=== PATIENT | male | born 1950 | race Caucasian/White ===

== ENCOUNTER 2016-07-24 11:06 | Inpatient (IN) ==
[2016-07-24] MEDS ORDERED: ASPIRIN PO STA (11:38)
[2016-07-24] MEDS ORDERED: APRESOLINE IV ONE (11:55)
[2016-07-24 12:02] LABS: MANUAL DIFF NEEDED? NO
[2016-07-24 12:14] LABS: INR 0.94; PROTIME 9.8 Seconds (9.2-11.7); PTT 30.4 Seconds (22.0-36.0)
[2016-07-24 12:17] LABS: BASO% 0.1 % (0.0-0.8); EOS# 0.25 X1000 (0.0-0.7); EOS% 2.8 % (0.0-10.0); HEMATOCRIT 26.1 % (42.0-52.0); HEMOGLOBIN 7.9 g/dL (14.0-18.0); IMM GRAN# 0.04 X1000 (0.0-0.04); IMM GRAN% 0.4 % (0.0-0.5); LYMPH# 1.04 X1000 (1.2-3.4); LYMPH% 11.7 % (20.5-51.1); MCH 23.2 PG (27-31); MCHC 30.3 g/dL (33-37); MCV 76.5 FL (81-99); MONO# 0.58 X1000 (0.11-0.59); MONO% 6.5 % (1.7-9.3); MPV 9.1 FL (7.4-10.4); NEUT% 78.5 % (42.2-75.2); PLT 203 X1000 (130-400); RBC 3.41 XMIL (4.7-6.1)
[2016-07-24 12:38] LABS: ALBUMIN 3.1 g/dL (3.5-5.0); CALCIUM 8.5 mg/dL (8.8-10.2); MAGNESIUM 1.6 mg/dL (1.5-2.7); POTASSIUM 4.1 mmol/L (3.5-5.1); TOTAL BILIRUBIN 0.24 mg/dL (0.20-1.00); TOTAL PROTEIN 6.7 g/dL (6.3-8.3)
[2016-07-24] MEDS ORDERED: NS 1,000 ML IV ONE (12:40)
--- NOTE | 2016-07-24 12:41 | Diag Imaging Result Document ---
PROCEDURE NAME: CHEST-2 VIEWS - 07/24/2016 FRONTAL AND LATERAL CHEST, TWO VIEWS: COMPARISON: 09/14/2015. FINDINGS: The lungs are well expanded. The heart is not enlarged. The vessels are not distended. No pneumonia. No consolidation. No free air beneath the diaphragm. IMPRESSION: No acute abnormality.
[2016-07-24] MEDS ORDERED: LASIX IV ONE (14:04)
--- NOTE | 2016-07-24 14:34 | Diag Imaging Result Document ---
PROCEDURE NAME: CTA THORAX/ABDOMEN/PELVIS - 07/24/2016 CT CHEST, ABDOMEN, AND PELVIS WITH INTRAVENOUS CONTRAST: FINDINGS: Chest with contrast. No thoracic aortic aneurysm or dissection. The heart is not enlarged. No pleural effusions. There are small mediastinal lymph nodes with several small calcified right hilar and subcarinal lymph nodes. No large central pulmonary emboli. There are small nonspecific nodular infiltrates in the upper mid lungs. No consolidation. No bronchiectasis. There is a calcified granuloma in the right lower lobe. IMPRESSION: 1. No thoracic aortic aneurysm or dissection. 2. There is evidence of a prior granulomatous infection. 3. Small scattered nodular infiltrates. FINDINGS: Abdomen and pelvis with intravenous contrast. The gallbladder has been removed. I believe there is fatty infiltration of the liver. Normal spleen, pancreas, and adrenal glands. No renal masses. No hydronephrosis. No abdominal aortic aneurysm or dissection. Moderate atherosclerosis. No bowel obstruction. No inflammation about the cecum. There are several scattered diverticula. No abscess. No free air. The urinary bladder is moderately distended and appears normal. The prostate is not enlarged. IMPRESSION: 1. Atherosclerosis, but no abdominal aortic aneurysm or dissection. 2. Cholecystectomy. 3. Fatty infiltration of the liver. 4. The L4 vertebra is subluxed on the L5 vertebra 11 mm with bilateral pars defects to the L4 vertebra and at least moderate spinal stenosis. A preliminary report was given at 1:47 p.m. MTDD
--- NOTE | 2016-07-24 14:35 | PROVIDER DOCUMENTATION ---
This chart was entered by Amari Monge Scribe, acting as scribe for Maile Rosenberg Jr, MD. HPI-Chest Pain - General Chief Complaint: Chest Pain Stated Complaint: CP Time Seen by Provider: 07/24/16 11:26 Source: patient Allergies/Adverse Reactions: Patient Allergies Allergy/AdvReac Type Severity Reaction Status Date / Time shellfish derived AdvReac NAUSEA/VOMI Verified 07/24/16 11:36 TING Home Medications: Home Medication List Medication Instructions Recorded Confirmed Last Taken Type Atenolol [Tenormin] 50 mg PO BID 06/30/12 07/24/16 07/24/16 History Insulin Glargine [Lantus] 90 unit SUBQ QHS 06/30/12 07/24/16 07/23/16 History Insulin Human Regular [Humulin R] 28 units SQ BID 06/30/12 07/24/16 07/24/16 History Metformin [Glucophage] 1,000 mg PO QPM 06/30/12 07/24/16 07/23/16 History Metformin [Glucophage] 500 mg PO QAM 06/30/12 07/24/16 07/24/16 History Niacin [Niaspan] 500 mg PO DAILY 06/30/12 07/24/16 07/24/16 History EZETIMIBE/SIMVAstatin [Vytorin 1 each PO QHS 07/16/12 07/24/16 07/23/16 History 10/20 mg] Losartan/Hydrochlorothiazide 1 each PO DAILY 07/16/12 07/24/16 07/24/16 History [Losartan-Hctz 50-12.5 mg Tab] Allopurinol [Zyloprim] 300 mg PO BID 09/14/15 07/24/16 07/24/16 History Omeprazole [Prilosec] 40 mg PO DAILY 09/14/15 07/24/16 07/24/16 History Oxycodone HCl/Acetaminophen 1 each PO TID PRN PRN 07/24/16 07/24/16 07/24/16 History [Percocet 10-325 mg Tablet] - History of Present Illness-CP Nature of Presenting Problem: patient is a 66 y/o M that presents to the ER left anterior chest pain that began abruptly today after he bent over to close cabinet. Patient has shortness of breath with pain, dizziness, and weakness. His pain is a dull pain. He denies radiation of pain. Patient was seen last week by pcp for chest pain but at that time is was more in the epigastric area. He has history of AAA in which he is being monitor for. Location: reports: other (left anterior) Chest Pain Radiation: reports: no radiation Quality of Pain: reports: dull Severity in ED: moderate Onset/Duration: abrupt, this morning Timing: still present, constant Context/Activities at Onset: reports: light activity Modifying Factors: worse with: breathing Associated Symptoms: reports: dizziness, shortness of breath, weakness. denies : abdominal pain, back pain, diaphoresis, fever/chills, nausea, vomiting Nitro Today/Relief: no nitro taken today Aspirin Treatment Today: 325 mg x 1, provided by ED Prior Chest Pain/Cardiac Workup: reports: other (AAA) Similar Symptoms Previously?: Yes Recently Seen Here or By Another Healthcare Provider: Yes Review of Systems - Adult - REVIEW OF SYSTEMS - ADULT Constitutional: denies: chills, fever Eyes: reports: no symptoms reported Ears, Nose, Mouth & Throat: denies: ear pain, sinus problem, throat pain, throat swelling Cardiovascular: reports: chest pain, edema. denies: orthopnea, palpitations, syncope Respiratory: reports: shortness of breath. denies: cough, wheezing Gastrointestinal: denies: abdominal pain, diarrhea, nausea, vomiting Genitourinary: reports: no symptoms reported Musculoskeletal: reports: muscle weakness. denies: back pain, joint pain, joint swelling, neck pain Integumentary: reports: no symptoms reported Neurological: reports: dizziness/vertigo. denies: headache/migraines, syncope Psychiatric: reports: no symptoms reported Endocrine: reports: no symptoms reported Hematologic/Lymphatic: reports: no symptoms reported Allergic/Immunologic: reports: no symptoms reported All Other Systems: Reviewed and Negative Past History - Adult - PAST MEDICAL HISTORY-ADULT Review of Records: reports: Old Records Reviewed, Nursing Assessment Review, Medications Reviewed Cardiovascular: reports: HTN Respiratory: reports: COPD, other (emphysema) Gastrointestinal: reports: GERD Musculoskeletal: reports: arthritis (gout) Endocrine/Immune: reports: Diabetes Other Conditions: reports: other cancer (skin ) - PRIOR SURGERIES/PROCEDURES Surgical/Procedure History: reports: cholecystectomy, orthopedic (extremity), other (cataract) - IMMUNIZATION STATUS Childhood Immunizations: See Nurse Assessment Flu Vaccine: See Nurse Assessment - FAMILY HISTORY Family History: reviewed, not pertinent - SOCIAL HISTORY Smoking: quit greater than 1 year, cigarettes Living Situation: family Physical Exam-General - PHYSICAL EXAM-ADULT Initial Vital Signs Reviewed: Yes - CONSTITUTIONAL General Appearance: alert, no apparent distress - EYES Eyes: PERRL/EOMI, pink conjunctivae - HEAD, EARS, NOSE, MOUTH & THROAT HENMT: normocephalic/atraumatic, moist mucous membranes, normal ENT inspection - NECK Neck: non-tender, full range of motion, normal inspection - RESPIRATORY Respiratory: chest non-tender, lungs clear, normal breath sounds, no respiratory distress, no accessory muscle use - CARDIOVASCULAR Cardiovascular: regular rate, rhythm, no gallop, no JVD, no murmur - GASTROINTESTINAL (ABDOMEN) Abdominal Exam: normal bowel sounds, non tender, soft, no organomegaly, no pulsatile mass - MUSCULOSKELETAL Back Exam: no CVA tenderness, no vertebral tenderness Extremity: normal range of motion, no calf tenderness, normal capillary refill, pedal edema (1 plus pitting bilateral lower extremities) - SKIN Integumentary: normal color, warm/dry - NEUROLOGIC Neurologic: grossly normal, no motor/sensory deficits - PSYCHIATRIC Psych/Mental Status: normal mood/affect, normal thought content, normal thought process, oriented x 3 Progress - PLAN OF CARE/RESULTS Progress/Plan/Lab Results: Vital Signs - 8 hr 07/24/16 11:16 07/24/16 11:40 07/24/16 12:39 Temperature 98.1 F Pulse Rate 73 70 71 Respiratory Rate 20 19 17 Blood Pressure 206/78 214/92 185/76 O2 Sat by Pulse Oximetry 100 98 07/24/16 12:53 Temperature Pulse Rate 72 Respiratory Rate 19 Blood Pressure 185/76 O2 Sat by Pulse Oximetry 99 Laboratory Results - last 24 hr 07/24/16 07/24/16 07/24/16 11:55 11:55 11:55 WBC 8.92 RBC 3.41 L Hgb 7.9 L Hct 26.1 L MCV 76.5 L MCH 23.2 L MCHC 30.3 L RDW Std Deviation 15.4 H Plt Count 203 MPV 9.1 Immature Gran % (Auto) 0.4 Neut % (Auto) 78.5 H Lymph % (Auto) 11.7 L Phelps % (Auto) 6.5 Eos % (Auto) 2.8 Baso % (Auto) 0.1 Immature Gran # (Auto) 0.04 Neut # (Auto) 7.00 H Lymph # (Auto) 1.04 L Phelps # (Auto) 0.58 Eos # (Auto) 0.25 Baso # (Auto) 0.01 PT INR PTT (Actin FS) Sodium 133 L Potassium 4.1 Chloride 96 L Carbon Dioxide 21 L Anion Gap 16 BUN 21 Creatinine 1.6 H Estimated GFR/1.73 m2 44 BUN/Creatinine Ratio 13 Glucose 227 H Calculated Osmolality 276 Calcium 8.5 L Magnesium 1.6 Total Bilirubin 0.24 AST 18 ALT 10 Alkaline Phosphatase 84 Creatine Kinase 50 Troponin T Ogr-E-Zhivrkutbka Pept 1336 H Total Protein 6.7 Albumin 3.1 L Globulin 3.6 Albumin/Globulin Ratio 0.9 07/24/16 07/24/16 11:55 11:55 WBC RBC Hgb Hct MCV MCH MCHC RDW Std Deviation Plt Count MPV Immature Gran % (Auto) Neut % (Auto) Lymph % (Auto) Phelps % (Auto) Eos % (Auto) Baso % (Auto) Immature Gran # (Auto) Neut # (Auto) Lymph # (Auto) Phelps # (Auto) Eos # (Auto) Baso # (Auto) PT 9.8 INR 0.94 PTT (Actin FS) 30.4 Sodium Potassium Chloride Carbon Dioxide Anion Gap BUN Creatinine Estimated GFR/1.73 m2 BUN/Creatinine Ratio Glucose Calculated Osmolality Calcium Magnesium Total Bilirubin AST ALT Alkaline Phosphatase Creatine Kinase Troponin T 0.047 Siv-H-Iuzoyazeaac Pept Total Protein Albumin Globulin Albumin/Globulin Ratio Orders Category Date Time Status Cardiac Monitoring DIRECTED Care 07/24/16 11:38 Active Oxygen Therapy- ED Nursing DIRECTED Care 07/24/16 11:38 Active Saline Loc NOW Care 07/24/16 11:38 Active CHEST-2 VIEWS [RAD] Stat Exams 07/24/16 11:38 Completed CTA THORAX/ABDOMEN/PELVIS [CT] Stat Exams 07/24/16 13:05 Taken CBC WITH ELECTRONIC DIFF [HEME] Stat Lab 07/24/16 11:55 Completed CK PROFILE [SP CHEM] Stat Lab 07/24/16 11:55 Completed COMPREHENSIVE METABOLIC PANEL [CHEM] Stat Lab 07/24/16 11:55 Completed MAGNESIUM [CHEM] Stat Lab 07/24/16 11:55 Completed PRO B-NATRIURETIC PEPTIDE Stat Lab 07/24/16 11:55 Completed PROTIME WITH INR [COAG] Stat Lab 07/24/16 11:55 Completed PTT [COAG] Stat Lab 07/24/16 11:55 Completed TROPONIN T Stat Lab 07/24/16 11:55 Completed 0.9% Sodium Chloride Inj [Ns] 1,000 ml Med 07/24/16 12:40 Discontinued IV 999 mls/hr Aspirin Med 07/24/16 11:38 Discontinued 325 mg PO STAT STA Hydralazine [Apresoline] Med 07/24/16 11:55 Discontinued 10 mg IV NOW ONE EKG [EKG] Stat Ther 07/24/16 11:38 Ordered plan of care-cardiac work up including CTA 1303- spoke with radiology regarding not using contrast on patient due to shellfish allergy. Radiologist reported that there isn't a relation to shellfish allergy and ivp dye. recommends contrasted study to look for leaking Aneurysm Result Diagrams: 07/24/16 11:55 07/24/16 11:55 - EKG 1 Time of EKG reading by physician:: 11:07 EKG Read and Signed by:: Maile Rosenberg Jr EKG Interpretation (*Must complete 3 of following elements*): Abnormal Rate: 74 Rhythm: sinus rhythm w/ 1st degree av block [place]: normal QRS: normal ND Interval: normal ST Wave: non-specific ST changes - XRAY 1 XRAY Study: Chest Impression: Normal XRAY Interpretation: nad - CT/MRI 1 CT Study: Angiogram Impression: Abnormal (No thoracic or abdominal aneurysm. no obstruction. Small nodular inflitrates. cholecystectomy.) - CONSULTS/PCP/HOSPITALIST Notification #1 *Consult/PCP/Hospitalist*: Dr. Mooney Time Discussed: 13:55 Consult Disposition: Admit (inpatient. give lasix.) Departure - Departure Time of Disposition Decision: 14:03 DIAGNOSIS: Chest pain in adult, Hypertension associated with diabetes CHF exacerbation Qualifiers: Congestive heart failure type: unspecified congestive heart failure type Qualified Code(s): I50.9 - Heart failure, unspecified Disposition: ADMITTED INPATIENT 09 Certified Medical Emergency: Emergent Condition: Good Referrals and Follow-Ups: Ozzy Mooney MD [Primary Care Provider] - This chart was documented by the indicated scribe, (Amari Monge, Alexisibeugene) and accurately reflects the services I performed and decisions made by me, Maile Rosenberg Jr, MD, as attested by the provider's signature.
[2016-07-24] MEDS: MORPHINE IV PRN ×2 (17:40→21:03)
[2016-07-24] MEDS: LOVENOX SUBQ SCH (17:44)
--- NOTE | 2016-07-24 18:00 | HISTORY AND PHYSICAL ---
HISTORY OF PRESENT ILLNESS: Mr. Martinez is a 66-year-old, white gentleman, comes to the emergency room with chest pain. He had some swelling of the legs and has some shortness of breath. This morning he was trying to open the drawer of his filing cabinet and he had some chest pain, which was in the retrosternal area as well as both precordial areas on both sides. He was somewhat short of breath after that and he comes to the emergency room. PAST MEDICAL HISTORY: He has a known case of hypertension, insulin-dependent diabetes, mild coronary artery disease. He has severe degenerative disk disease in the lumbar spine. He has diabetic neuropathy, peripheral arterial disease and he was told that he had aneurysms in the past. past SURGICAL HISTORY: Mr. Martinez had a history of cholecystectomy and knee surgery. ALLERGIES: He has no he is allergic to shellfish. SOCIAL HISTORY: He used to be a smoker, however, he does not smoke any longer. He does not drink. MEDICATIONS: Allopurinol 200 mg b.i.d., atenolol 50 mg b.i.d., Vytorin 1 at bedtime, 90 units of Lantus insulin, losartan daily, niacin 500 mg daily, metformin 500 mg in the morning and 1000 mg in the evening, He also takes oxycodone 10 t.i.d. p.r.n. DETAILS OF PERSONAL, PAST AND FAMILY HISTORY: Noncontributory. REVIEW OF SYSTEMS: Other than chest pain and shortness of breath and generalized weakness, it is noncontributory. He is anemic. During last admission, we had consulted Dr. Ornelas who wanted to see him after he was discharged, but patient did not go and see him. PHYSICAL EXAMINATION: VITAL SIGNS: Reveal temperature normal, pulse 72 per minute, respiratory rate 16 per minute. Blood pressure 174/73. HEENT: Head normocephalic. Pupils PERRLA. Fundus examination not done. NECK: Supple. JVP normal. ENT examination unremarkable. There is no evidence of lymphadenopathy, thyroid enlargement, pedal edema, calf tenderness, anemia, cyanosis or clubbing. Pedal pulses well felt. BREASTS: Exam normal. CHEST: Normal inspection. LUNGS: Clear on auscultation with occasional basal rales. PMI in the 6th intercostal space outside the midclavicular line. HEART: Sounds normal. No murmur, gallop or rub noted. ABDOMEN: Nondistended. Hernial orifices normal. No guarding, rigidity, free fluid, masses, or organomegaly. Bowel sounds normal. RECTAL: Deferred. AUDIO VISUAL PRODUCTION SPECIALIST: Higher functions normal. Cranial nerves normal. Motor and sensory system examination unremarkable except for subjective sensation of tingling and numbness in the legs. Deep tendon reflexes sluggish in the lower extremities. Plantars downgoing. Skull and spine examination reveals painful movements of the lumbosacral spine. SLR positive. No cerebellar signs or signs of meningeal irritation. LOCOMOTOR: Unremarkable. SKIN: Unremarkable. IMPRESSION: Chest pain. Possible unstable angina. Patient is in mild congestive heart failure. Troponin is negative and proBNP is somewhat elevated. We will get an echocardiogram in the morning and also put him on sliding scale. He had a computed tomography angiography done which was negative for pulmonary embolism as well as aneurysms of the abdominal and thoracic aorta. cc: Ozzy Mooney MD
[2016-07-24] MEDS ORDERED: GLUCOPHAGE PO SCH (21:00)
[2016-07-24] MEDS: ZYLOPRIM PO SCH (21:03)
[2016-07-24] MEDS: TENORMIN PO SCH (21:03)
[2016-07-24] MEDS: VYTORIN 10/20 MG PO SCH (21:03)
[2016-07-24] MEDS ORDERED: INSULIN PEN NEEDLES ONE (21:09)
[2016-07-24] MEDS: LANTUS SUBQ SCH (21:13)
[2016-07-24] MEDS: HUMULIN R SUBQ SCH (22:46)
[2016-07-24] MEDS: PERCOCET-10 PO PRN (23:05)
[2016-07-24] MEDS: ZOFRAN IV PRN (23:05)
[2016-07-25] MEDS: PERCOCET-10 PO PRN ×4 (04:24→22:46)
[2016-07-25] MEDS: MORPHINE IV PRN (05:29)
[2016-07-25] MEDS: ZOFRAN IV PRN (05:30)
--- NOTE | 2016-07-25 05:38 | EKG Report ---
Test Performed on : 07/24/2016 11:07:18 AM Test Reason : CP Blood Pressure : / mmHG Vent. Rate : 074 BPM Atrial Rate : 074 BPM P-R Int : 214 ms QRS Dur : 070 ms QT Int : 386 ms P-R-T Axes : 050 012 -30 degrees QTc Int : 428 ms Sinus rhythm. with 1st degree AV block. Possible Lateral infarct (cited on or before 27-SEP-2015) Abnormal ECG When compared with ECG of 27-SEP-2015 09:22, Questionable change in initial forces of Anterior leads Inverted T waves have replaced nonspecific T wave abnormality in Inferior leads Nonspecific T wave abnormality, worse in Lateral leads Unconfirmed Result
[2016-07-25] MEDS: HUMULIN R SUBQ SCH ×4 (06:43→21:09)
[2016-07-25 07:00] LABS: MANUAL DIFF NEEDED? NO
[2016-07-25 07:07] LABS: BASO% 0.2 % (0.0-0.8); EOS# 0.15 X1000 (0.0-0.7); EOS% 2.3 % (0.0-10.0); HEMATOCRIT 24.1 % (42.0-52.0); HEMOGLOBIN 7.1 g/dL (14.0-18.0); IMM GRAN# 0.03 X1000 (0.0-0.04); IMM GRAN% 0.5 % (0.0-0.5); LYMPH# 0.92 X1000 (1.2-3.4); LYMPH% 14.1 % (20.5-51.1); MCH 22.8 PG (27-31); MCHC 29.5 g/dL (33-37); MCV 77.5 FL (81-99); MONO# 0.55 X1000 (0.11-0.59); MONO% 8.4 % (1.7-9.3); MPV 9.1 FL (7.4-10.4); NEUT% 74.5 % (42.2-75.2); PLT 189 X1000 (130-400); RBC 3.11 XMIL (4.7-6.1)
[2016-07-25 07:33] LABS: CALCIUM 8.3 mg/dL (8.8-10.2); POTASSIUM 4.4 mmol/L (3.5-5.1)
[2016-07-25] MEDS ORDERED: GLUCOPHAGE PO SCH (09:00)
--- NOTE | 2016-07-25 09:21 | PROGRESS NOTE ---
DATE: 07/25/2016 Mr. Martinez is in about the same general condition. He has seen some blood in the stool, bright red blood, but he thought it was because of hemorrhoids. His hemoglobin is down from 7.9 to 7.1 today. I personally feel like he needs a blood transfusion. Will transfuse 2 units of packed RBCs. His proBNP was 1,336. He was given Lasix yesterday in the emergency room which made his creatinine come up and BUN come up some. We had ordered stool for occult blood. He was seen by Dr. Ornelas the last time when he was in the hospital. However, he needs further evaluation. His MCV is 76.5, MCH is 23.2, and MCHC 30.3, all in favor of iron-deficiency anemia. Will get a ferritin level. -1 cc: Ozzy Mooney MD
[2016-07-25] MEDS: HYZAAR 50/12.5 MG PO SCH (09:40)
[2016-07-25] MEDS: TENORMIN PO SCH ×2 (09:40→21:12)
[2016-07-25] MEDS: NIASPAN PO SCH (09:40)
[2016-07-25] MEDS: ZYLOPRIM PO SCH ×3 (09:40→21:02)
[2016-07-25] MEDS ORDERED: NS 250 ML ONE (13:41)
[2016-07-25] MEDS ORDERED: NS 500 ML IV SCH (14:31)
--- NOTE | 2016-07-25 17:59 | ECHO REPORT ---
ORDER DATE: 07/25/2016 INTERPRETING PHYSICIAN: Dr. Banerjee REQUESTING PHYSICIAN: CLINICAL INDICATIONS: Coronary heart disease, chest pain. M-MODE MEASUREMENTS: Right ventricle: 3.3 cm. Left ventricle end diastole: 3.7 cm. Left ventricle end systole: 2.7 cm. Posterior wall: 1.6 cm. Interventricular septum: 1.6 cm. Left atrium: 5.1 cm. Aortic root: 3.0 cm. SUMMARY OF 2-DIMENSIONAL IMAGING: The left ventricular function is normal. Ejection fraction 65%. There is moderate concentric LVH. The chamber appears to be moderately enlarged. The aortic valve shows sclerosis of the cusps without stenosis. Color flow mapping unremarkable. The mitral annulus shows calcification. Pulse wave Doppler of mitral inflow shows normal E/A ratio. Tissue Doppler of septal and lateral mitral annulus averages 8 cm per second. The pulse wave Doppler of pulmonary venous flow is normal. There is no diastolic dysfunction. The tricuspid valve shows trace regurgitation. The inferior vena cava is enlarged. The pulmonary pressure is estimated at 35 mmHg. The pulmonic valve looks normal. Color flow mapping unremarkable. There is no pericardial effusion, masses or thrombus. Question of whether or not patient may have renal insufficiency. Clinical correlation recommended. cc: MD Ozzy Jackson MD
[2016-07-25] MEDS: LOVENOX SUBQ SCH (18:08)
[2016-07-25] MEDS ORDERED: LASIX IV ONE (19:26)
[2016-07-25] MEDS ORDERED: LASIX ONE (19:49)
[2016-07-25] MEDS: VYTORIN 10/20 MG PO SCH ×2 (19:54→21:02)
[2016-07-25] MEDS: LANTUS SUBQ SCH ×2 (19:54→21:01)
[2016-07-25] MEDS: PRILOSEC PO SCH (21:12)
[2016-07-26] MEDS: PERCOCET-10 PO PRN (02:40)
[2016-07-26] MEDS: PRILOSEC PO SCH ×2 (05:46→09:13)
[2016-07-26] MEDS: HYZAAR 50/12.5 MG PO SCH (09:09)
[2016-07-26] MEDS: NIASPAN PO SCH (09:09)
[2016-07-26] MEDS: TENORMIN PO SCH (09:09)
[2016-07-26] MEDS: ZYLOPRIM PO SCH (09:10)
[2016-07-26 09:26] LABS: MANUAL DIFF NEEDED? NO
[2016-07-26 09:30] VITALS: BP 153/65
[2016-07-26 09:32] LABS: BASO% 0.2 % (0.0-0.8); EOS# 0.13 X1000 (0.0-0.7); EOS% 2.3 % (0.0-10.0); HEMATOCRIT 27.9 % (42.0-52.0); HEMOGLOBIN 8.8 g/dL (14.0-18.0); IMM GRAN# 0.03 X1000 (0.0-0.04); IMM GRAN% 0.5 % (0.0-0.5); LYMPH# 0.92 X1000 (1.2-3.4); MCH 24.6 PG (27-31); MCHC 31.5 g/dL (33-37); MCV 78.2 FL (81-99); MONO# 0.49 X1000 (0.11-0.59); MONO% 8.5 % (1.7-9.3); MPV 9.4 FL (7.4-10.4); NEUT% 72.5 % (42.2-75.2); PLT 159 X1000 (130-400); RBC 3.57 XMIL (4.7-6.1)
[2016-07-26 09:45] LABS: CALCIUM 7.8 mg/dL (8.8-10.2); POTASSIUM 4.3 mmol/L (3.5-5.1)
[2016-07-26] MEDS: HUMULIN R SUBQ SCH (09:53)
--- NOTE | 2016-07-26 15:39 | PROGRESS NOTE ---
DATE: 07/26/2016 Mr. Martinez received 2 units of packed RBCs. His lungs sound clear. He was given Lasix yesterday. He is doing better. Overall condition is unchanged. We will continue with the current management. -4 cc: Ozzy Mooney MD
--- NOTE | 2016-07-26 21:21 | DISCHARGE SUMMARY ---
ADMISSION DATE: 07/24/2016 DISCHARGE DATE: 07/26/2016 Mr. Martinez is a 66-year-old, white gentleman, was admitted with shortness of breath, chest pain. He had increasing anemia. HOSPITAL COURSE: Laboratory data In the hospital: Troponin levels are negative. Initial hemoglobin was 7.9, it went down to 7.1 and came up to 8.8 after 2 units of transfusion. INR was 0.924. Electrolytes are normal. BUN 29, creatinine 2.9. Folate level was 10.1. Stool was ordered for occult blood, however, we could not get the stool specimen. He had seen some bright red blood in the past. We will make arrangements with Dr. Ornelas. He had evidence of congestive heart failure as his proBNP was 1336 when he came in. Troponin as mentioned before was negative. Blood sugar was checked. He was given 2 units of packed RBCs. IV Lasix was given in between. He is feeling better. He wants to be discharged home. His colonoscopy may take about 3 more days on account of the weekend coming. He will see Dr. Ornelas in about 7 days. We will get him an appointment. FINAL DIAGNOSES: 1. Severe anemia. 2. Congestive heart failure. 3. Insulin-dependent diabetes. 4. Renal failure. 5. I will give him a prescription for potassium chloride 80 mEq once daily. cc: Ozzy Mooney MD
--- NOTE | 2016-08-02 09:39 | DISCHARGE SUMMARY ---
ADMISSION DATE: 07/24/2016 DISCHARGE DATE: 07/26/2016 DISCHARGE SUMMARY ADDENDUM: Mr. Martinez has chronic renal failure which was exacerbated by IV diuretic therapy with Lasix on two occasions. So, he had acute renal failure on top of chronic renal failure. cc: Ozzy Mooney MD
== END 2016-07-26 12:53 | disposition home or self-care (01) ==
LOC: ED 11:06 → EDIPHOLD 16:13 → 3N 18:02
PROVIDERS: ADMIT Internal Medicine; ATTEND Internal Medicine